=== PATIENT | female | born 1965 | race Caucasian/White ===

== ENCOUNTER 2020-11-03 14:53 | Outpatient (CLI) | payer BC, SELFPAY ==
--- NOTE | ~2020-11-03 | XR_ITS ---
EXAMINATION: XR wrist LT min 3V DATE: 11/03/2020 15:14 INDICATION: Left first carpometacarpal joint pain. TECHNIQUE: 4 views of left wrist were obtained. COMPARISON: None. FINDINGS: Bone alignment is normal. No fracture. There is mild osteoarthritis of first carpometacarpa l joint. IMPRESSION: 1. Mild osteoarthritis of first carpometacarpal joint. Reviewed, dictated and finalized at location A.
== END 2020-11-03 14:54 | disposition home or self-care (01) ==
LOC: ANHIMG 15:04
PROVIDERS: PCP Nurse Practitioner; Visit Provider Plastic Surgery
DX: M19.032 Primary osteoarthritis, left wrist (principal)
CPT/HCPCS: 73110

== ENCOUNTER 2021-03-31 08:14 | Emergency (ER) | payer BC, SELFPAY ==
[2021-03-31 08:21] VITALS: BP 157/105; PULSE 110; RESP 16; TEMP 36.7; O2SAT 100
--- NOTE | 2021-03-31 08:34 | PC.NURSE ---
Pt walked out of room and left department after speaking with EDP.
--- NOTE | 2021-03-31 08:36 | ED.GENADULT ---
HPI - General Adult General Chief complaint: Unspecified Stated complaint: needs seizure medications Time Seen by Provider: 03/31/21 08:21 Source: patient History of Present Illness HPI narrative: Patient presents requesting Lamictal. Patient with a history of bipolar disorder and reports Lamictal is helping her symptoms. She reports she was seen by her primary care physician who set her up with a psychiatrist to help with her medications and restarted the patient on amitriptyline in the interim. Patient also voiced concerns that she might be having seizures she said sometimes she will stand up too fast and feel lightheaded reports she is woken up on the ground before. She just wants something to help with her mood she does have a follow-up with a psychiatrist on May 11 but she is concerned that appointment is too far away and was looking for additional medications in the meantime. Related Data Allergies Allergy/AdvReac Type Severity Reaction Status Date / Time No Known Allergies Allergy Verified 03/30/21 08:27 Review of Systems Review of Systems: CONSTITUTIONAL: Denies fever, chills, or sweats. EYES: Denies visual changes, redness, or discharge. ENT: Denies rhinorrhea, congestion, sore throat, or otalgia. CARDIOVASCULAR: Denies chest pain, palpitations, or edema. RESPIRATORY: Denies cough or dyspnea. GASTROINTESTINAL: Denies abdominal pain, nausea, vomiting, or diarrhea. GENITOURINARY: Denies dysuria or hematuria. SKIN: Denies rash or itching. MUSCULOSKELETAL: Denies back pain, joint pain, or myalgia. NEUROLOGIC: Denies headache, numbness, dizziness, or weakness. PSYCHIATRIC: Denies anxiety or depression. All systems reviewed & are unremarkable except as noted in HPI and below PMFSH Past Medical History Medical History Allergic rhinitis Anxiety Genital herpes GERD without esophagitis Hyperlipidemia Interstitial cystitis Social History Social History Smoking status: Current every day smoker Tobacco type: cigarettes (stopped using cigarettes when she began vaping 6 months ago, previous 10 year pack history. ) and e-cigarettes/vaping (several times per day ) Alcohol intake: never Exam Narrative: GENERAL: Well-appearing, well-nourished, and in no acute distress. HEAD: Normocephalic, atraumatic. EYES: PERRLA and EOMI. ENT: Nares clear, no rhinorrhea or epistaxis. Mucous membranes moist. NECK: Supple. No masses. No JVD EXTREMITIES: Normal range of motion. No edema. SKIN: Warm, dry, no rash. NEURO: No focal deficits. Alert and oriented x3. PSYCH: Normal mood and affect. Course Vital Signs Vital signs: Vital Signs Temperature 36.7 C 03/31/21 08:21 Pulse Rate 110 H 03/31/21 08:21 Respiratory Rate 16 03/31/21 08:21 Blood Pressure 157/105 H 03/31/21 08:21 Pulse Oximetry 100 03/31/21 08:21 Temperature 36.7 C 03/31/21 08:21 Pulse Rate 110 H 03/31/21 08:21 Respiratory Rate 16 03/31/21 08:21 Blood Pressure 157/105 H 03/31/21 08:21 Pulse Oximetry 100 03/31/21 08:21 Medical Decision Making MDM Narrative Medical decision making narrative: Patient presents requesting Lamictal for mood stabilization. Discussed with patient that we typically do not start long-term medications in the ER and be best if she was evaluated by an expert which appointment is on May 11. I did offer her evaluation for these dizziness spells and waking up on the floor. She also offered evaluation by neurology given her concerns for seizure activity. Patient was offered as needed medications such as hydroxyzine and she was feeling anxious regarding her mood. Patient declined all therapies and left prior completion of her evaluation. She was alert and oriented demonstrated capacity and did not appear to be an acute threat to herself or others. Vital Signs Vital Signs: Vital Signs Temperature
== END 2021-03-31 08:45 | disposition left against medical advice (07) ==
PROVIDERS: Emergency Provider Emergency Medicine; PCP Nurse Practitioner
DX: F31.9 Bipolar disorder, unspecified (principal); K21.9 Gastro-esophageal reflux disease without esophagitis; E78.5 Hyperlipidemia, unspecified; F17.290 Nicotine dependence, other tobacco product, uncomplicated
CPT/HCPCS: 99281